=== PATIENT | female | born 1950 | race Caucasian/White ===

== ENCOUNTER → 2016-09-01 | Outpatient (CLI) | payer MEDICARE ==
[~2016-09-01] MED LIST: ESTR42.52 VG
--- NOTE | 2016-09-02 18:44 | Diagnostic Imaging Report ---
DIG TWAN BILAT SCREEN W CAD Comparison: 05/20/2015, 12/28/2013 and 11/24/2012 Indication: Screening mammography. Technique: Digital screening mammography was obtained with a computer-aided detection (CAD) system. Findings: The breasts are extremely dense, which lowers the sensitivity of mammography. Bilateral benign vascular calcifications are unchanged. No dominant mass, suspicious microcalcifications or architectural distortion to suggest malignancy. Impression: Stable mammogram without evidence of malignancy. Followup screening mammogram in 12 months is recommended. ACR BI-RADS Category 2: Benign findings. Result letter will be mailed to the patient. Note: At least 10% of breast cancer is not imaged by mammography. Dictated by: Dictated on workstation # [id number]
== END ==
LOC: RAD 10:01
PROVIDERS: ATTEND Physician Assistant Medical
DX: Z12.31 Encounter for screening mammogram for malignant neoplasm of breast (principal)